=== PATIENT | female | born 1970 | race African-American/Black ===

== ENCOUNTER 2016-07-22 16:45 | Emergency (ER) | payer OTHER ==
[2016-07-22 16:56] VITALS: TEMP 98.1; BMI 30.2
--- NOTE | 2016-07-22 17:48 | PDOC ---
History of Present Illness - General Chief Complaint: Chest Pain Stated Complaint: CHEST PAIN History Source: Patient Exam Limitations: No Limitations - History of Present Illness Initial Comments: 07/22/16 17:57 This is a 46 y F with PMH of IBS, who presents to ED due to chest pain that started at 3 pm this afternoon while she was walking. This is her first episode of chest pain. It is pressure like, mid sternal, occasionally radiating to back , pleuritic, aggravated by deep inhalation and movement, alleviated by lying still, associated with anxiety. It was initially 10/10 but has spontateoulsy subsided to 3/10. She denies sob, cough, orthopnea, diaphoresis, LE edema, abd pain, diarrhea, dysuria, h/a, f/c, bleeding. She has no family PMH of sudden or [place]. She does not smoke, drink or do illicit drugs. She denies recent travel, calf pain, palpitations or hemoptysis. 07/22/16 18:00 07/22/16 19:00 Troponin negative Past History - Travel Traveled outside of the country in the last 30 days: No Close contact w/someone who was outside of country & ill: No - Past Medical History Allergies/Adverse Reactions: Allergies Allergy/AdvReac Type Severity Reaction Status Date / Time No Known Allergies Allergy Verified 07/22/16 16:56 Home Medications: Ambulatory Orders NK [No Known Home Medication] 07/22/16 Other medical history: PATIENT DENIES MEDICAL HISTORY - Reproductive History Cervical CA: No Dysfunctional Uterine Bleeding: No Ectopic : No Endometrial CA: No Polycystic Ovaries: No Tubal Ligation: No - Immunization History Immunization Up to Date: Yes - Psycho/Social/Smoking Cessation Hx Anxiety: No Suicidal Ideation: No Smoking History: Never smoked Have you smoked in the past 12 months: No Hx Alcohol Use: Yes (OCCASIONALLY) Drug/Substance Use Hx: No Substance Use Type: None Review of Systems - Review of Systems Able to Perform ROS?: Yes Is the patient limited Filipino proficient: No Constitutional: No: Chills, Diaphoresis, Fever, Weakness HEENTM: No: Blurred Vision, Recent change in vision, Nose Pain, Nose Congestion , Throat Pain Respiratory: No: Cough, Orthopnea, Shortness of Breath, Hemoptysis Cardiac (ROS): Yes: Chest Pain. No: Edema, Irregular Heart Rate, Lightheadedness, Palpitations, Syncope, Chest Tightness ABD/GI: No: Abdominal Distended, Diarrhea, Nausea, Rectal Bleeding, Vomiting, Abdominal cramping, Tarry Stools : No: Dysuria, Flank Pain Musculoskeletal: No: Joint Pain, Neck Pain Integumentary: No: Bruising, Pallor Neurological: No: Headache, Numbness, Paresthesia Psychiatric: Yes: Anxiety Endocrine: No: Excessive Sweating, Flushing, Change in Weight Hematologic/Lymphatic: No: Anemia, Blood Clots, Easy Bleeding, Easy Bruising All Other Systems: Reviewed and Negative *Physical Exam - Vital Signs Last Vital Signs Temp Pulse Resp BP Pulse Ox 98.1 F 79 18 144/95 100 07/22/16 16:45 07/22/16 16:45 07/22/16 16:45 07/22/16 16:45 07/22/16 16:45 - Physical Exam Comments: 07/22/16 18:08 General:NAD AAOx4 HEENT: normocepthalic, atraumatic, PERRLA EOMI, sclera anicteric, conjunctiva clear CV: RRR S1S2 no JCD, no hepatojugular reflex. Pulm: CTA b/l GI: soft, nontender, nondistended, normoactive bowel sounds, no mass Neuro: CN II-XII grossly intact Extremties: nonedematous Heart Score/ECG Review - History History: Slightly suspicious - Electrocardiogram EKG: Normal - Age Age: </= 45 - Risk Factors Based on the list above the patient has:: No risk factors known #1 General ECG Interpretation: Sinus Rhythm, Normal Rate, Normal Intervals, No acute ischemic changes ED Treatment Course - LABORATORY CBC & Chemistry Diagram: 07/22/16 18:10 07/22/16 18:10 Medical Decision Making - Medical Decision Making 07/22/16 18:10 patient presents with clinical picture of pleuritic chest pain low suspicion for PE or CVA EKG unremarkable Order cbc diff, cmp, cardiac profile, trop, ddimer, coags, serum . 07/22/16 18:14 pepcid at tylenol ordered 07/22/16 18:56 *DC/Admit/Observation/Transfer Diagnosis at time of Disposition: Pleuritic chest pain
[2016-07-22] MEDS ORDERED: ACETAMINOPHEN 325 MG TABLET (FP) PO ONE (18:13)
[2016-07-22] MEDS ORDERED: FAMOTIDINE 20 MG/50 ML IVPB 50 ML IVPB ONE ×2 (18:13→18:17)
[2016-07-22 18:15] LABS: BASOPHIL 0.5 % (0-2.0); EOSINOPHIL 0.2 % (0-4.5); MCH 28.8 pg (25.7-33.7); MCHC 32.6 g/dl (32.0-36.0); MEAN CELL VOLUME 88.4 fl (80-96); MEAN PLT VOLUME 8.2 fl (7.5-11.1); PLATELET COUNT 262 K/MM3 (134-434); RDW 14.1 % (11.6-15.6); WHITE BLOOD COUNT 7.3 K/mm3 (4.0-10.0)
--- NOTE | 2016-07-22 18:16 | PDOC ---
Attending Attestation - Resident Resident Name: Hedy Delucaudmila - ED Attending Attestation I have performed the following: I have examined & evaluated the patient, The case was reviewed & discussed with the resident, I agree w/resident's findings & plan, Exceptions are as noted - HPI HPI: 07/22/16 18:13 46 year old female c/ hx of IBS presents with chest pain starting at 3 pm. The patient is under a lot of stress. States that at 3 pm, felt a sharp midsternal pleuritic chest pain that was initially intermittently and now became constant. No nausea, vomiting, radiation, or SOB. No family history of cardiac. No hx of PEs. Not on OCPs. Came into the ED because it was persistent. Pt does have a GERD but is unsure if this is like her gastritis. - Physicial Exam PE: 07/22/16 18:18 GENERAL: Awake, alert, and fully oriented, in no acute distress. HEAD: No signs of trauma EYES: PERRLA, EOMI, sclera anicteric, conjunctiva clear ENT: Auricles normal inspection, hearing grossly normal, nares patent, oropharynx clear without exudates. NECK: Normal ROM, supple, no lymphadenopathy, JVD, or masses LUNGS: Breath sounds equal, clear to auscultation bilaterally. No wheezes, and no crackles HEART: Regular rate and rhythm, normal S1 and S2, no murmurs, rubs or gallops ABDOMEN: Soft, nontender, normoactive bowel sounds. No guarding, no rebound. No masses EXTREMITIES: Normal range of motion, no edema. No clubbing or cyanosis. No cords, erythema, or tenderness NEUROLOGICAL: Cranial nerves II through XII grossly intact. Normal speech, normal gait SKIN: Warm, Dry, normal turgor, no rashes or lesions noted. - Medical Decision Making 07/22/16 18:15 I have low suspicion for cardiac, ACS at this time. Low risk factor for PE. I suspect atypical chest pain vs. GERD. Labs including trop and d-dimer. Trial GERD medications and reassess. Heart Score/ECG Review - History History: Slightly suspicious - Electrocardiogram EKG: Normal - Age Age: </= 45 - Risk Factors Based on the list above the patient has:: No risk factors known - Troponin Troponin: </= normal limit - Score Heart Score - Total: 0 #1 ECG reviewed & interpreted by me at: 17:00 07/22/16 18:15 NSR 79, no std/luis, T wave flat III, normal axis, normal intervals, QTC 440 msec
[2016-07-22] MEDS ORDERED: ACETAMINOPHEN 325 MG TABLET (FP) ONE (18:17)
[2016-07-22 18:37] LABS: ALBUMIN 4.1 g/dl (3.4-5.0); ANION GAP 6 (8-16); BILIRUBIN,TOTAL 0.3 mg/dL (0.2-1.0); CALCIUM 9.2 mg/dL (8.5-10.1); CO2 28 mmol/L (21-32); CREATININE 0.8 mg/dL (0.55-1.02); GLUCOSE,RANDOM 81 mg/dL (74-106); SGOT/AST 26 U/L (15-37); SGPT/ALT 33 U/L (12-78); TOT PROT 8.2 g/dl (6.4-8.2)
[2016-07-22 18:39] LABS: ALK PHOS 86 U/L (45-117); TROPONIN I < 0.02 ng/ml (0.00-0.05)
[2016-07-22 19:06] LABS: INR 1.09 (0.82-1.09)
[2016-07-22] MEDS ORDERED: KETOROLAC TROMETHAMINE 30 MG/1 ML VIAL IVPUSH ONE (20:01)
[2016-07-22] MEDS ORDERED: KETOROLAC TROMETHAMINE 30 MG/1 ML VIAL ONE (20:29)
[2016-07-22 22:44] LABS: TROPONIN I < 0.02 ng/ml (0.00-0.05)
--- NOTE | 2016-07-22 23:13 | PDOC ---
*Physical Exam - Vital Signs Last Vital Signs Temp Pulse Resp BP Pulse Ox 98.1 F 79 18 144/95 100 07/22/16 16:45 07/22/16 16:45 07/22/16 16:45 07/22/16 16:45 07/22/16 16:45 ED Treatment Course - LABORATORY CBC & Chemistry Diagram: 07/22/16 18:10 07/22/16 18:10 - ADDITIONAL ORDERS Additional order review: Laboratory Results 07/22/16 07/22/16 07/22/16 21:50 18:10 18:10 INR 1.09 D-Dimer < 200 Sodium Potassium Chloride Carbon Dioxide Anion Gap BUN Creatinine Creat Clearance w eGFR Random Glucose Calcium Total Bilirubin AST ALT Alkaline Phosphatase Creatine Kinase 218 H CK-MB (CK-2) 2.613 Troponin I < 0.02 Total Protein Albumin Serum , Qual 07/22/16 07/22/16 18:10 18:10 INR D-Dimer Sodium 138 Potassium 4.3 Chloride 104 Carbon Dioxide 28 Anion Gap 6 L BUN 9 D Creatinine 0.8 D Creat Clearance w eGFR > 60 Random Glucose 81 Calcium 9.2 Total Bilirubin 0.3 D AST 26 D ALT 33 Alkaline Phosphatase 86 Creatine Kinase 239 H CK-MB (CK-2) 2.8 Troponin I < 0.02 Total Protein 8.2 Albumin 4.1 Serum , Qual Negative 07/22/16 18:10 RBC 4.36 MCV 88.4 MCHC 32.6 RDW 14.1 MPV 8.2 Neutrophils % 60.0 Lymphocytes % 32.3 Monocytes % 7.0 Eosinophils % 0.2 Basophils % 0.5 - Medications Given in the ED: ED Medications Discontinued Medications Generic Name Dose Route Start Last Admin Trade Name Constantineq PRN Reason Stop Dose Admin Acetaminophen 650 mg 07/22/16 18:13 07/22/16 18:31 Tylenol - PO 07/22/16 18:14 650 mg ONCE ONE Administration Famotidine/Sodium Chloride 50 mls @ 100 mls/hr 07/22/16 18:13 07/22/16 18:31 Pepcid 20 Mg Premixed Ivpb - IVPB 07/22/16 18:42 100 mls/hr ONCE ONE Administration Ketorolac Tromethamine 30 mg 07/22/16 20:01 07/22/16 20:33 Toradol Injection - IVPUSH 07/22/16 20:02 30 mg ONCE ONE Administration Medical Decision Making - Medical Decision Making 07/22/16 23:11 CBC, BMP 07/22/16 18:10 07/22/16 18:10 CMP Sodium 138 mmol/L (136-145) 07/22/16 18:10 Potassium 4.3 mmol/L (3.5-5.1) 07/22/16 18:10 Chloride 104 mmol/L (98-107) 07/22/16 18:10 Carbon Dioxide 28 mmol/L (21-32) 07/22/16 18:10 Anion Gap 6 (8-16) L 07/22/16 18:10 BUN 9 mg/dL (7-18) D 07/22/16 18:10 Creatinine 0.8 mg/dL (0.55-1.02) D 07/22/16 18:10 Creat Clearance w eGFR > 60 (>60) 07/22/16 18:10 Random Glucose 81 mg/dL (74-106) 07/22/16 18:10 Calcium 9.2 mg/dL (8.5-10.1) 07/22/16 18:10 Total Bilirubin 0.3 mg/dL (0.2-1.0) D 07/22/16 18:10 AST 26 U/L (15-37) D 07/22/16 18:10 ALT 33 U/L (12-78) 07/22/16 18:10 Alkaline Phosphatase 86 U/L (45-117) 07/22/16 18:10 Creatine Kinase 218 IU/L (26-192) H 07/22/16 21:50 CK-MB (CK-2) 2.613 ng/ml (0.5-3.6) 07/22/16 21:50 Troponin I < 0.02 ng/ml (0.00-0.05) 07/22/16 21:50 Total Protein 8.2 g/dl (6.4-8.2) 07/22/16 18:10 Albumin 4.1 g/dl (3.4-5.0) 07/22/16 18:10 Serum , Qual Negative 07/22/16 18:10 Two troponin negative. Chest xray reviewed. Pt reports feeling much better. I discussed the physical exam findings, ancillary test results and final diagnoses with the patient. I answered all of the patient's questions. The patient was satisfied with the care received and felt comfortable with the discharge plan and treatment plan. The patient will call their primary care physician within 24 hours to arrange follow-up and will return to the Emergency Department with any new, persistant or worsening symptoms. *DC/Admit/Observation/Transfer Diagnosis at time of Disposition: Pleuritic chest pain, Atypical chest pain - Discharge Dispostion Disposition: HOME Condition at time of disposition: Improved - Referrals Referrals: Sonny Jimenez MD [Primary Care Provider] - Frederic Sethi MD [Staff Physician] - - Patient Instructions Printed Discharge Instructions: DI for Atypical Chest Pain Additional Instructions: Your chest xray and labs are within normal limits. Follow up with your doctor. - Post Discharge Activity
[2016-07-22 23:16] VITALS: BP 138/84; PULSE 81
--- NOTE | 2016-07-24 10:20 | EKG ---
Test Reason : Blood Pressure : / mmHG Vent. Rate : 079 BPM Atrial Rate : 079 BPM P-R Int : 144 ms QRS Dur : 086 ms QT Int : 384 ms P-R-T Axes : 057 045 019 degrees QTc Int : 440 ms NORMAL SINUS RHYTHM POSSIBLE LEFT ATRIAL ENLARGEMENT INCOMPLETE RBBB NO PREVIOUS ECGS AVAILABLE Confirmed by ILANA GORE MD ([id number]) on 07/24/2016 10:20:35 AM Referred By: Confirmed By:ILANA GORE MD
== END 2016-07-22 23:16 | disposition home or self-care (01) ==
LOC: JER 16:45
PROC: 3E033GC Introduction of Other Therapeutic Substance into Peripheral Vein, Percutaneous Approach (ICD-10-PCS; principal; 2016-07-22)
PROC: 3E0333Z Introduction of Anti-inflammatory into Peripheral Vein, Percutaneous Approach (ICD-10-PCS; 2016-07-22)
DX: R07.89 Other chest pain (principal); F41.9 Anxiety disorder, unspecified
CPT/HCPCS: 36415; 71010-TC; 80053; 82550; 82553; 84484; 84703; 85025; 85379; 85610; 93005; 93010; 99284-25

== ENCOUNTER 2018-10-22 13:14 | Emergency (ER) | payer OTHER ==
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
[2018-10-22] MEDS ORDERED: IBUPROFEN 400 MG TABLET (FP) PO ONE ×2 (13:38→13:45)
[2018-10-22 13:39] VITALS: BP 127/94; PULSE 82; TEMP 98.9; BMI 29.2
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
== END 2018-10-22 14:33 | disposition home or self-care (01) ==
LOC: FER 13:14
DX: S06.0X0A Concussion without loss of consciousness, initial encounter (principal); V43.52XA Car driver injured in collision with other type car in traffic accident, initial encounter; Y93.89 Activity, other specified; Y92.410 Unspecified street and highway as the place of occurrence of the external cause
CPT/HCPCS: 99281-25